=== PATIENT | male | born 1995 | race Caucasian/White ===

== ENCOUNTER 2024-05-04 08:46 | Emergency (ER) | payer BC, SELFPAY ==
[2024-05-04 08:47] VITALS: BP 133/84; PULSE 110; RESP 18; TEMP 36.8; O2SAT 97; BMI 30.1
--- NOTE | 2024-05-04 08:54 | ED.RN ---
PT STATES HE HAS HAD FLU-LIKE SX AND THE BUMP ON HIS SHOULDER FOR APROX A WEEK.
--- NOTE | 2024-05-04 09:12 | EX.ED.DYSGE1 ---
HPI History of Present Illness Chief Complaint: Abscess Narrative Narrative: Chief complaint and HPI: Upper back abscess. 28-year-old male with no significant past medical history presents for evaluation of upper back abscess. Patient states several days ago he noticed a lump on his back. He states since then it has become more painful and red. He states that he has never had an abscess in the past. No history of MRSA. He is not diabetic. Denies any IV drug abuse. He does have tattoos but states that the tattoo is not new. He denies any fever, chest pain, shortness of breath, abdominal pain, nausea, vomiting. Review of systems: See HPI Medications: As listed on the chart Allergies: As listed on the chart PFSH: Per chart Vital signs: As listed on the chart. Reviewed. Physical exam: Gen: A&O x3, NAD Head: Normocephalic, atraumatic Eyes: No sclera icterus, conjunctiva clear ENT: Moist mucous membranes Neck: Trachea midline, No JVD, full range of motion, nontender, no lymphadenopathy CV: RRR, no murmurs Resp: Lungs CTA BL, no w/r/c Musc: Full ROM, no deformity Skin: Warm, patient has an abscess to the upper midline back overlying an old tattoo-it is erythematous, warm, tender. Small of fluctuance but more induration. There is a scab overlying the anterior portion of the abscess. No crepitus. No lymphatic streaking. Neuro: Alert, oriented, grossly intact, sensation intact Psych: Cooperative, appropriate mood and affect [facility] Home Medications ?Medication ?Instructions ?Recorded ?Last Taken ?Type hydrocodone-acetaminophen 5-325mg 1 - 2 tab PO Q4H PRN PRN Pain ##20 07/27/14 Unknown Rx 5mg-325mg Allergy/AdvReac Type Severity Reaction Status Date / Time No Known Allergies Allergy Verified 05/04/24 08:52 Surgical History (Updated 05/04/24 @ 08:52 by Pippa Reilly) H/O: vasectomy Social History Smoking Status: Current every day smoker tobacco type: smokeless tobacco EXAM Physical Exam Const Vital Signs: 05/04/24 08:47 Temperature 98.3 F Temperature Source Oral Pulse Rate 110 H Respiratory Rate 18 Blood Pressure 133/84 H Blood Pressure Mean 100 Pulse Ox 97 Oxygen Delivery Method Room Air MDM MDM MDM Narrative Medical decision making narrative: 28-year-old male with no significant past medical history presents for evaluation of upper back abscess. See physical exam findings. Patient has been abscess. Patient has no systemic symptoms therefore I do not think any laboratory workup is needed. Patient will require incision and drainage. Patient tolerated I&D well. Stable to discharge home. Packing was placed. He was educated the packing needs to be removed in 24 hours. Okay to shower in 24 hours. Follow-up with general surgery for wound check. Return back to the ED if symptoms change or worsen. Educated on no bathtubs, swimming pools, lakes, muñiz, oceans, hot tubs until fully healed. He confirmed understand the plan. Tylenol and Motrin as needed for pain. Incision and Drainage Indication: Abscess Location: Upper back, 3 x 3 cm Consent: Risks, benefits, and alternatives discussed with patient and consent obtained Procedure: A timeout was performed verifying correct patient, procedure, site, and positioning. The area was prepared and draped in the usual sterile manner. The site was anesthetized with 1% lidocaine with epinephrine. A cruciate incision was made in the skin and purulent material was expressed. The abscess was explored thoroughly, and sequestered pockets were opened. The abscess pocket was irrigated. Bleeding was minimal. 1 inch iodoform packing was placed. The patient tolerated the procedure well without complications. Follow-Up: Standard post-procedure care was explained and return precautions were given Impression: 1. Upper back abscess, status post incision and drainage Discharge Plan Triage Chief Complaint: Abscess ED Provider: Yahir Coelho Dx/Rx/DC Orders Prescriptions: No Action hydrocodone-acetaminophen 1 TABLET tablet 1 - 2 tab PO Q4H PRN PRN (Reason: Pain) Qty: 20 0RF Primary Care Provider: Care Physician,No Primary Referrals: Care Physician,No Primary [Primary Care Provider] - Print Language: Yi
[2024-05-04] MEDS: Lidocaine 1% /Epi 1:100 (20ml) 20 ML Vial INFILT (09:15)
== END 2024-05-04 10:00 | disposition home or self-care (01) ==
LOC: ED 09:53
PROVIDERS: Emergency Provider Surgery; Visit Provider Surgery
DX: L02.212 Cutaneous abscess of back [any part, except buttock and flank] (principal); F17.220 Nicotine dependence, chewing tobacco, uncomplicated
CPT/HCPCS: 99283; A4216